=== PATIENT | male | born 1945 | race Caucasian/White ===

== ENCOUNTER 2020-10-01 10:56 | Inpatient (IN) ==
[2020-10-01 11:42] LABS: Basophils # 0.1 10*3/uL (0.0-0.2); Basophils % 0.6 % (0.0-0.8); Eosinophils # 0.1 10*3/uL (0.0-0.87); Eosinophils % 0.5 % (0.00-10.9); Hematocrit 43.3 VOL% (42.0-52.0); Hemoglobin 14.4 GM/DL (14.0-18.0); Immature Granulocytes % 0.8 %; Immature Granulocytes Absolute 0.08 #; Lymphocytes # 1.2 10*3/uL (1.4-4.0); Mean Corpuscular HGB Conc 33.3 GM/DL (32-36); Mean Platelet Volume 9.6 FL (9.6-12.0); Monocytes % 7.8 % (1.7-12.7); Neutrophils % 78.3 % (38.7-73.9); Platelet Count 234 T/CUMM (130-400); Red Blood Count 4.92 MC/CUMM (3.8-5.5); Red Cell Distribution Width 13.4 % (9.3-17.3); White Blood Count 9.7 T/CUMM (4-12)
[2020-10-01 11:43] LABS: INR 1.2; PT Patient Result 12.6 SECS (9.8-11.9); Partial Thromboplastin Time 31.2 SECS (23.9-33.8)
[2020-10-01 11:51] LABS: Albumin 3.3 G/DL (3.4-5.0); Bilirubin,Total 0.7 MG/DL (0.2-1.0); Osmolality,Calculated 283.7 MOS/KG (273-304); Potassium 4.3 MMOL/L (3.5-5.1); Total Protein 7.6 G/DL (6.4-8.3)
[2020-10-01] MEDS ORDERED: ALUMINUM/MAGNES/SIMETH MAX STR 30 ML UDCUP PO PRN (12:01)
[2020-10-01] MEDS ORDERED: ONDANSETRON 4 MG/2 ML VIAL IV PRN (12:01)
[2020-10-01] MEDS ORDERED: CALCIUM CARBONATE CHEW 500 MG TABLET PO PRN (12:01)
[2020-10-01] MEDS ORDERED: BISACODYL 5 MG TABLET PO PRN (12:01)
[2020-10-01] MEDS ORDERED: POTASSIUM CHLORIDE 20 MEQ TABLET PO PRN (12:01)
[2020-10-01] MEDS ORDERED: ZALEPLON 5 MG CAPSULE PO PRN (12:01)
[2020-10-01] MEDS ORDERED: ACETAMINOPHEN 325 MG TABLET PO PRN (12:01)
[2020-10-01] MEDS ORDERED: SIMETHICONE CHEW 125 MG TABLET PO PRN (12:01)
[2020-10-01] MEDS ORDERED: LACTULOSE 20 GM/30 ML UDCUP PO PRN (12:01)
[2020-10-01] MEDS ORDERED: MAGNESIUM SULF RIDER 2 GM in PREMIX 1 EACH IV PRN (12:01)
[2020-10-01] MEDS ORDERED: DEXTROSE 50% 25 GM/50 ML VIAL IV PRN (12:01)
[2020-10-01] MEDS ORDERED: MAGNESIUM SULF RIDER 4 GM in PREMIX 1 EACH IV PRN (12:01)
[2020-10-01] MEDS ORDERED: guaiFENesin/DM ER 600-30 MG TABLET PO PRN (12:01)
[2020-10-01] MEDS ORDERED: GLUCAGON 1 MG VIAL IM PRN (12:01)
[2020-10-01] MEDS ORDERED: hydrALAZINE 20 MG/1 ML VIAL IV PRN (12:01)
[2020-10-01] MEDS ORDERED: MORPHINE 4 MG/1 ML VIAL IV PRN (12:01)
[2020-10-01] MEDS ORDERED: INFLUENZA VIRUS VACCINE 0.5 ML SYRINGE IM ONE (14:28)
[2020-10-01] MEDS ORDERED: PNEUMOCOCCAL VACCINE (13 VALENT) 0.5 ML SYRINGE IM ONE (14:29)
[2020-10-01] MEDS ORDERED: ALTEPLASE 12 MG in SODIUM CHLORIDE 0.9% 240 ML IV SCH (15:00)
[2020-10-01 15:12] LABS: Troponin I 0.063 NG/ML (0.00-0.045)
[2020-10-01] MEDS ORDERED: MIDAZOLAM 2 MG/2 ML VIAL ONE (15:25)
[2020-10-01] MEDS ORDERED: HEPARIN/NACL 0.9% 2 UNITS/ML 500 ML IV ONE (15:25)
[2020-10-01] MEDS ORDERED: LIDOCAINE 1% 20 ML VIAL ONE (15:25)
[2020-10-01] MEDS ORDERED: fentaNYL 100 MCG/2 ML VIAL ONE (15:25)
[2020-10-01] MEDS: SODIUM CHLORIDE 0.9% 1,000 ML IV SCH ×2 (16:01→16:17)
[2020-10-01] MEDS ORDERED: SODIUM CHLORIDE 0.9% 1,000 ML IV SCH (16:30)
[2020-10-01 18:30] LABS: Bilirubin,Urine Negative (Negative); Blood, Urine Large mg/dL (Negative); Glucose,Urine (UA) Negative (Negative); Hyaline Casts,Urine 1 /LPF (0-3); Ketones,Urine Negative (Negative); Mucus,Urine Occasional /LPF (Occasional); Nitrite,Urine Negative (Negative); Protein,Urine 30 MG/DL; RBC,Urine 21 /HPF (0-4); Squamous Epithelial Cell,Urine Occasional /HPF (0-10); Urine Appearance CLEAR (Clear); Urine Color Yellow (Yellow); Urine Specific Gravity 1.043 (1.001-1.035); WBC,Urine 2 /HPF (0-6)
[2020-10-01] MEDS: INSULIN LISPRO 100 UNIT/ML SUBCUT SCH ×2 (18:47→20:25)
[2020-10-01 18:55] LABS: INR 1.2; PT Patient Result 13.2 SECS (9.8-11.9)
[2020-10-01 19:06] LABS: Troponin I 0.407 NG/ML (0.00-0.045)
[2020-10-01 21:07] LABS: Troponin I 0.715 NG/ML (0.00-0.045)
[2020-10-02 04:37] LABS: Basophils # 0.1 10*3/uL (0.0-0.2); Basophils % 0.6 % (0.0-0.8); Eosinophils # 0.2 10*3/uL (0.0-0.87); Eosinophils % 1.8 % (0.00-10.9); Hematocrit 37.3 VOL% (42.0-52.0); Hemoglobin 12.3 GM/DL (14.0-18.0); Immature Granulocytes % 0.5 %; Immature Granulocytes Absolute 0.04 #; Lymphocytes % 12.8 % (21.2-54.2); Mean Corpuscular Volume 89.2 FL (87-102); Mean Platelet Volume 10.1 FL (9.6-12.0); Neutrophils % 76.3 % (38.7-73.9); Platelet Count 155 T/CUMM (130-400); Red Blood Count 4.18 MC/CUMM (3.8-5.5); Red Cell Distribution Width 13.3 % (9.3-17.3); White Blood Count 8.2 T/CUMM (4-12)
[2020-10-02 04:53] LABS: INR 1.4; PT Patient Result 15.1 SECS (9.8-11.9)
[2020-10-02 05:12] LABS: Partial Thromboplastin Time 42.4 SECS (23.9-33.8)
[2020-10-02 05:18] LABS: Calcium 8.3 MG/DL (8.5-10.1); Osmolality,Calculated 281.3 MOS/KG (273-304); Potassium 3.9 MMOL/L (3.5-5.1); Risk Ratio 3.11; Thyroid Stimulating Hormone 0.812 uIU/ml (0.358-3.74)
[2020-10-02] MEDS: INSULIN LISPRO 100 UNIT/ML SUBCUT SCH ×4 (08:26→20:08)
[2020-10-02] MEDS: amLODIPine 5 MG TABLET PO SCH (09:11)
[2020-10-02] MEDS: OXYBUTYNIN XL 5 MG TABLET PO SCH (09:11)
[2020-10-02] MEDS: METOPROLOL TARTRATE 50 MG TABLET PO SCH (09:11)
[2020-10-02] MEDS: PANTOPRAZOLE 40 MG TABLET PO SCH (09:11)
[2020-10-02] MEDS ORDERED: APIXABAN 5 MG TABLET PO ONE (11:17)
[2020-10-02] MEDS: SODIUM CHLORIDE 0.9% 1,000 ML IV SCH ×2 (16:08)
[2020-10-02 16:48] LABS: Partial Thromboplastin Time 41.9 SECS (23.9-33.8)
[2020-10-03 05:29] LABS: Basophils # 0.1 10*3/uL (0.0-0.2); Basophils % 0.8 % (0.0-0.8); Eosinophils # 0.4 10*3/uL (0.0-0.87); Eosinophils % 5.1 % (0.00-10.9); Hematocrit 34.5 VOL% (42.0-52.0); Hemoglobin 11.5 GM/DL (14.0-18.0); Immature Granulocytes % 0.5 %; Immature Granulocytes Absolute 0.04 #; Lymphocytes # 1.4 10*3/uL (1.4-4.0); Mean Corpuscular HGB Conc 33.3 GM/DL (32-36); Mean Corpuscular Volume 87.6 FL (87-102); Mean Platelet Volume 9.4 FL (9.6-12.0); Monocytes % 8.7 % (1.7-12.7); Neutrophils % 66.9 % (38.7-73.9); Platelet Count 189 T/CUMM (130-400); Red Blood Count 3.94 MC/CUMM (3.8-5.5); Red Cell Distribution Width 13.2 % (9.3-17.3); White Blood Count 7.9 T/CUMM (4-12)
[2020-10-03 05:39] LABS: Partial Thromboplastin Time 36.7 SECS (23.9-33.8)
[2020-10-03 05:53] LABS: Osmolality,Calculated 277.7 MOS/KG (273-304); Potassium 3.8 MMOL/L (3.5-5.1)
[2020-10-03] MEDS: INSULIN LISPRO 100 UNIT/ML SUBCUT SCH ×3 (09:18→18:01)
[2020-10-03] MEDS: PANTOPRAZOLE 40 MG TABLET PO SCH (09:20)
[2020-10-03] MEDS: amLODIPine 5 MG TABLET PO SCH (09:20)
[2020-10-03] MEDS: METOPROLOL TARTRATE 50 MG TABLET PO SCH (09:20)
[2020-10-03] MEDS: OXYBUTYNIN XL 5 MG TABLET PO SCH (09:26)
[2020-10-03] MEDS ORDERED: APIXABAN 5 MG TABLET PO ONE (15:28)
[2020-10-03 15:59] VITALS: BP 120/64
[2020-10-03 16:25] LABS: Partial Thromboplastin Time 31.7 SECS (23.9-33.8)
== END 2020-10-03 17:16 | disposition home or self-care (01) | DRG 176 ==
LOC: N.EDINP 10:56 → N.ED 10:56 → N.EDINP 13:39 → N.TELES 13:48 → N.ICU 17:01 → N.TELEN 10-02 18:18
PROVIDERS: ADMIT Internal Medicine Cardiovascular Disease; ATTEND Internal Medicine Cardiovascular Disease